=== PATIENT | female | born 1955 | race African-American/Black ===

== ENCOUNTER → 2025-02-20 | Day surgery (SDC) | payer OTHER | END | disposition home or self-care (01) | LOC: FMAMMOTONE 11:19 | PROVIDERS: ATTEND Family Medicine | PROC: 0HB5XZX Excision of Chest Skin, External Approach, Diagnostic (ICD-10-PCS; principal; 2025-02-20) | DX: D24.2 Benign neoplasm of left breast (principal) | CPT/HCPCS: 19081; A4648; 76098-TC-FY; 87899; 88305-TC ==